=== PATIENT | female | born 1995 | race Caucasian/White ===

== ENCOUNTER 2018-05-12 20:52 | Emergency (ER) | payer BC ==
[~2018-05-12] VITALS: Ht 170.1 cm; Wt 127.0 kg
[~2018-05-12 20:52] MED LIST: AMOXICILLIN500 MG PO; MOTRIN600 MG PO; MOTRIN800 MG PO; TOPAMAX50 MG PO; ZITHROMAX Z PA250 MG PO
[2018-05-12 22:00] LABS: BILIRUBIN NEGATIVE (NEGATIVE); BLOOD 3+ (NEGATIVE); CLARITY TURBID (CLEAR); COLOR YELLOW (YELLOW); GLUCOSE NEGATIVE (NEGATIVE); KETONE NEGATIVE (NEGATIVE); LEUKO ESTERASE 3+ (NEGATIVE); NITRITE NEGATIVE (NEGATIVE); PH 5.5 (5.0-9.0); SPECIFIC GRAVITY 1.025 (1.005-1.030); UROBILINOGEN 0.2 E.U./dl (0.2-1.0)
[2018-05-12 22:18] LABS: RBC TNTC rbc/hpf (0-2); WBC TNTC wbc/hpf (0-5)
[2018-05-12] MEDS ORDERED: PYRIDIUM100 MG PO (22:22)
[2018-05-12] MEDS ORDERED: MACROBID100 M1 PO (22:22)
== END 2018-05-12 22:45 | disposition home or self-care (01) ==
LOC: ED 20:52
PROVIDERS: Physician Assistant
DX: N39.0 Urinary tract infection, site not specified (principal)

== ENCOUNTER 2018-07-12 16:22 | Emergency (ER) | payer BC ==
[~2018-07-12] VITALS: Ht 170.1 cm; Wt 127.0 kg
[~2018-07-12 16:22] MED LIST changes: +MACROBID100 M1 PO; +PYRIDIUM100 MG PO
[2018-07-12] MEDS ORDERED: ZYRTEC10 MG PO (16:50)
[2018-07-12] MEDS ORDERED: PREDNISONE20 M1 PO (16:50)
[2018-07-12] MEDS ORDERED: FLONASE ALLERG9.9 ML NAS (16:50)
[2018-07-12] MEDS ORDERED: AUGMENTIN 875-875 MG PO (16:50)
== END 2018-07-12 17:25 | disposition home or self-care (01) ==
LOC: ED 16:22
DX: J01.00 Acute maxillary sinusitis, unspecified (principal); J45.909 Unspecified asthma, uncomplicated

== ENCOUNTER → 2020-01-14 | Outpatient (CLI) | payer BC ==
[~2020-01-14] MED LIST changes: +AUGMENTIN 875-875 MG PO; +FLONASE ALLERG9.9 ML NAS; +PREDNISONE20 M1 PO; +ZYRTEC10 MG PO
== END | disposition home or self-care (01) ==
LOC: LAB 09:26
PROVIDERS: ATTEND Nurse Practitioner Women's Health
DX: N93.9 Abnormal uterine and vaginal bleeding, unspecified (principal)

== ENCOUNTER → 2020-01-16 | Outpatient (CLI) | payer BC | LOC: LAB 09:47 | PROVIDERS: ATTEND Nurse Practitioner Women's Health | DX: N93.9 Abnormal uterine and vaginal bleeding, unspecified (principal) ==

== ENCOUNTER → 2020-01-18 | Outpatient (CLI) | payer BC | END | disposition home or self-care (01) | LOC: LAB 09:12 | PROVIDERS: ATTEND Obstetrics & Gynecology | DX: N93.9 Abnormal uterine and vaginal bleeding, unspecified (principal) ==

== ENCOUNTER → 2020-01-22 | Outpatient (CLI) | payer BC | END | disposition home or self-care (01) | LOC: LAB 09:24 | PROVIDERS: ATTEND Nurse Practitioner Women's Health | DX: O02.1 Missed abortion (principal) ==

== ENCOUNTER → 2020-01-28 | Outpatient (CLI) | payer BC | END | disposition home or self-care (01) | LOC: LAB 09:13 | PROVIDERS: ATTEND Obstetrics & Gynecology | DX: O02.1 Missed abortion (principal); Z3A.00 Weeks of gestation of pregnancy not specified ==

== ENCOUNTER → 2020-01-30 | Outpatient (CLI) | payer BC | END | disposition home or self-care (01) | LOC: LAB 09:58 | PROVIDERS: ATTEND Obstetrics & Gynecology | DX: O02.1 Missed abortion (principal) ==

== ENCOUNTER → 2020-02-05 | Outpatient (CLI) | payer BC | END | disposition home or self-care (01) | LOC: LAB 10:01 | PROVIDERS: ATTEND Nurse Practitioner Women's Health | DX: O02.1 Missed abortion (principal) ==

== ENCOUNTER → 2020-05-17 | Outpatient (CLI) | payer BC ==
[2020-05-17 14:31] LABS: BASO # 0.1 10*3/uL (0.0-0.1); BASO % 0.7 % (0.0-1.0); EOS # 0.1 10*3/uL (0.0-0.4); HEMATOCRIT 41.5 % (37.0-47.0); LYMPH # 3.2 10*3/uL (1.3-4.4); LYMPH % 30.1 % (27.0-41.0); MEAN CELL VOLUME 81.1 fl (81.0-99.0); MEAN CORPUSCULAR HGB 25.4 pg (27.0-31.0); MEAN CORPUSCULAR HGB CONC 31.3 g/dl (33.0-37.0); MONO # 0.6 10*3/uL (0.1-1.0); NEUT # 6.5 10*3/uL (2.3-7.9); PLATELET COUNT AUTOMATED 322 10*3/uL (130-400); RED BLOOD COUNT 5.12 10*6/uL (4.10-5.10); RED CELL DISTRI WIDTH 13.3 % (0-14.5); WHITE BLOOD COUNT 10.5 10*3/uL (4.8-10.8)
[2020-05-17 14:39] LABS: B-hCG (QUALITATIVE) NEGATIVE (NEGATIVE)
[2020-05-18 09:07] LABS: FOLLICLE STIMULATING HORMONE 6.5 mIU/mL (.); LUTEINIZING HORMONE 8.3 mIU/mL (.); PROLACTIN 9.9 ng/mL (4.8-23.3)
[2020-05-19 14:13] LABS: TESTOSTERONE FREE, (DIRECT) 4.2 pg/mL (0.0-4.2)
== END | disposition home or self-care (01) ==
LOC: US 13:30 → LAB 13:33
PROVIDERS: ATTEND Obstetrics & Gynecology
DX: N92.5 Other specified irregular menstruation (principal); N93.9 Abnormal uterine and vaginal bleeding, unspecified; Z80.3 Family history of malignant neoplasm of breast

== ENCOUNTER 2020-12-06 02:04 | Emergency (ER) | payer BC ==
[~2020-12-06] VITALS: Ht 160 cm; Wt 90.7 kg
[2020-12-06] MEDS ORDERED: SILVADENE,SSD C50 GM T (02:35)
== END 2020-12-06 02:49 | disposition home or self-care (01) ==
LOC: ED 02:04
DX: T21.14XA Burn of first degree of lower back, initial encounter (principal); X19.XXXA Contact with other heat and hot substances, initial encounter; Y93.89 Activity, other specified; Y92.89 Other specified places as the place of occurrence of the external cause; Y99.8 Other external cause status

== ENCOUNTER → 2022-06-25 | Outpatient (CLI) | payer BC ==
[~2022-06-25] MED LIST changes: +ADIPEX-P37.5 MG PO; +CEPHALEXIN500 M1 PO; +SEPTDS PO; +SILVADENE,SSD C50 GM T; +ZESTRIL10 MG PO
== END | disposition home or self-care (01) ==
LOC: US 08:46
PROVIDERS: ATTEND Nurse Practitioner Women's Health
DX: N92.6 Irregular menstruation, unspecified (principal)

== ENCOUNTER 2022-06-26 16:44 | Emergency (ER) | payer BC ==
[~2022-06-26] VITALS: Ht 170.1 cm; Wt 134.3 kg
[~2022-06-26 16:44] MED LIST changes: -ADIPEX-P37.5 MG PO; -CEPHALEXIN500 M1 PO; -SEPTDS PO; -ZESTRIL10 MG PO
[2022-06-26] MEDS ORDERED: ADIPEX-P37.5 MG PO (17:11)
[2022-06-26] MEDS ORDERED: ZESTRIL10 MG PO (17:11)
[2022-06-26 17:49] LABS: BASO # 0.1 10*3/uL (0.0-0.1); BASO % 0.5 % (0.0-1.0); EOS # 0.1 10*3/uL (0.0-0.4); EOS % 1.4 % (1.0-4.0); HEMATOCRIT 39.6 % (37.0-47.0); LYMPH # 2.8 10*3/uL (1.3-4.4); LYMPH % 27.5 % (27.0-41.0); MEAN CELL VOLUME 82.3 fl (81.0-99.0); MEAN CORPUSCULAR HGB 26.8 pg (27.0-31.0); MEAN CORPUSCULAR HGB CONC 32.6 g/dl (33.0-37.0); MEAN PLATELET VOLUME 10.3 fl (9.6-12.3); MONO # 0.7 10*3/uL (0.1-1.0); MONO % 6.7 % (3.0-9.0); NEUT # 6.6 10*3/uL (2.3-7.9); NEUT % 63.6 % (47.0-73.0); PLATELET COUNT AUTOMATED 319 10*3/uL (130-400); RED BLOOD COUNT 4.81 10*6/uL (4.10-5.10); RED CELL DISTRI WIDTH 13.6 % (0-14.5); WHITE BLOOD COUNT 10.3 10*3/uL (4.8-10.8)
[2022-06-26 18:05] LABS: ALKALINE PHOSPHATASE 74 U/L (46-116); BUN 8 mg/dl (9-23); CHLORIDE 104 mmol/L (98-107); POTASSIUM 3.7 mmol/L (3.4-5.1); SGPT/ALT 30 U/L (10-49); TOTAL PROTEIN 7.5 gm/dL (6.0-8.0)
[2022-06-26] MEDS ORDERED: CEPHALEXIN500 M1 PO (20:31)
[2022-06-26] MEDS ORDERED: SEPTDS PO (20:31)
== END 2022-06-26 20:48 | disposition home or self-care (01) ==
LOC: ED 16:44
PROVIDERS: Physician Assistant
DX: L03.311 Cellulitis of abdominal wall (principal); I10 Essential (primary) hypertension

== ENCOUNTER → 2022-12-11 | Outpatient (CLI) | payer BC ==
[~2022-12-11] MED LIST changes: +ADIPEX-P37.5 MG PO; +ASPERCREME LID1 EACH TD; +CEPHALEXIN500 M1 PO; +SEPTDS PO; +ZESTRIL10 MG PO
[2022-12-11 13:54] LABS: BASO # 0.1 10*3/uL (0.0-0.1); BASO % 0.7 % (0.0-1.0); EOS # 0.3 10*3/uL (0.0-0.4); EOS % 2.7 % (1.0-4.0); HEMATOCRIT 40.3 % (37.0-47.0); LYMPH # 3.2 10*3/uL (1.3-4.4); LYMPH % 33.2 % (27.0-41.0); MEAN CELL VOLUME 80.9 fl (81.0-99.0); MEAN CORPUSCULAR HGB 27.3 pg (27.0-31.0); MEAN CORPUSCULAR HGB CONC 33.7 g/dl (33.0-37.0); MONO # 0.5 10*3/uL (0.1-1.0); MONO % 4.9 % (3.0-9.0); NEUT # 5.6 10*3/uL (2.3-7.9); NEUT % 58.2 % (47.0-73.0); PLATELET COUNT AUTOMATED 333 10*3/uL (130-400); RED BLOOD COUNT 4.98 10*6/uL (4.10-5.10); RED CELL DISTRI WIDTH 13.6 % (0-14.5); WHITE BLOOD COUNT 9.7 10*3/uL (4.8-10.8)
[2022-12-11 14:22] LABS: ALKALINE PHOSPHATASE 73 U/L (46-116); BUN 10 mg/dl (9-23); CHLORIDE 107 mmol/L (98-107); CHOLESTEROL 162 mg/dL (<200); LDL CHOLESTEROL 103 mg/dL (9-159); POTASSIUM 3.6 mmol/L (3.4-5.1); SGPT/ALT 31 U/L (10-49); TOTAL PROTEIN 7.4 gm/dL (6.0-8.0); TRIGLYCERIDES 81 mg/dl (<150)
[2022-12-11 14:26] LABS: BETA-HCG, QUANT < 3.0 mIU/mL (3-10)
[2022-12-11 14:28] LABS: RUBELLA IgG ANTIBODY 26.7 IU/mL (0-9.9); VITAMIN D, 25-HYDROXY 40.9 ng/mL (30-100)
[2022-12-12 05:06] LABS: HEPATITIS B SURFACE AG Negative (Negative)
[2022-12-15 00:05] LABS: 17-OH PROGESTERONE <10 ng/dL (.)
== END | disposition home or self-care (01) ==
LOC: LAB 12:59
PROVIDERS: ATTEND Registered Nurse
DX: Z01.818 Encounter for other preprocedural examination (principal); Z11.59 Encounter for screening for other viral diseases; Z11.4 Encounter for screening for human immunodeficiency virus [HIV]; Z13.21 Encounter for screening for nutritional disorder; Z01.83 Encounter for blood typing; E28.2 Polycystic ovarian syndrome

== ENCOUNTER → 2022-12-17 | Outpatient (CLI) | payer BC | END | disposition home or self-care (01) | LOC: LAB 15:45 | PROVIDERS: ATTEND Registered Nurse | DX: E03.9 Hypothyroidism, unspecified (principal); Z31.49 Encounter for other procreative investigation and testing ==

== ENCOUNTER → 2023-07-23 | Outpatient (CLI) | payer OTHER | END | disposition home or self-care (01) | LOC: LAB 08:59 | PROVIDERS: ATTEND Registered Nurse | DX: Z32.00 Encounter for pregnancy test, result unknown (principal) ==

== ENCOUNTER 2024-11-05 20:42 | Emergency (ER) | payer OTHER ==
[~2024-11-05] VITALS: Ht 172.7 cm; Wt 139.3 kg
[2024-11-05] MEDS ORDERED: ACETAMINOPHEN 325 MG TAB PO ONE (20:55)
[2024-11-05] MEDS ORDERED: METOPROLOL SUCC50 M1 PO (20:57)
== END 2024-11-05 22:47 | disposition home or self-care (01) ==
LOC: ED 20:42
DX: S09.90XA Unspecified injury of head, initial encounter (principal); I10 Essential (primary) hypertension; E03.9 Hypothyroidism, unspecified; Z79.899 Other long term (current) drug therapy; V49.9XXA Car occupant (driver) (passenger) injured in unspecified traffic accident, initial encounter; Y93.89 Activity, other specified; Y92.488 Other paved roadways as the place of occurrence of the external cause; Y99.8 Other external cause status

== ENCOUNTER 2025-01-19 18:52 | Emergency (ER) | payer OTHER ==
[~2025-01-19] VITALS: Ht 170.1 cm; Wt 145.1 kg
[~2025-01-19 18:52] MED LIST changes: +METOPROLOL SUCC50 M1 PO
[2025-01-19] MEDS ORDERED: Ondansetron Hydrochloride 4 MG TAB PO ONE (20:05)
[2025-01-19] MEDS ORDERED: Ondansetron4 MG PO (22:06)
== END 2025-01-19 22:20 | disposition home or self-care (01) ==
LOC: ED 18:52
DX: S16.1XXA Strain of muscle, fascia and tendon at neck level, initial encounter (principal); R42 Dizziness and giddiness; I10 Essential (primary) hypertension; V87.7XXA Person injured in collision between other specified motor vehicles (traffic), initial encounter; Y93.89 Activity, other specified; Y92.410 Unspecified street and highway as the place of occurrence of the external cause; Y99.8 Other external cause status